=== PATIENT | female | born 1935 | race Caucasian/White ===

== ENCOUNTER 2018-12-14 13:50 | Outpatient (CLI) | payer MEDICARE | END 2018-12-14 23:59 | disposition home or self-care (01) | LOC: WOU 13:50 | PROVIDERS: ATTEND Podiatrist Foot & Ankle Surgery | DX: I87.2 Venous insufficiency (chronic) (peripheral) (principal); L97.812 Non-pressure chronic ulcer of other part of right lower leg with fat layer exposed; R60.0 Localized edema | CPT/HCPCS: G0463 ==

== ENCOUNTER 2018-12-20 10:50 | Outpatient (CLI) | payer MEDICARE | END 2018-12-20 23:59 | disposition home health service (06) | LOC: WOU 10:50 | PROVIDERS: ATTEND Podiatrist Foot & Ankle Surgery | DX: S80.821D Blister (nonthermal), right lower leg, subsequent encounter (principal); S80.822D Blister (nonthermal), left lower leg, subsequent encounter; L03.116 Cellulitis of left lower limb; L03.115 Cellulitis of right lower limb; X58.XXXD Exposure to other specified factors, subsequent encounter; I89.0 Lymphedema, not elsewhere classified; R60.1 Generalized edema | CPT/HCPCS: G0463 ==

== ENCOUNTER 2018-12-27 10:10 | Outpatient (CLI) | payer MEDICARE | END 2018-12-27 23:59 | disposition home health service (06) | LOC: WOU 10:10 | PROVIDERS: ATTEND Podiatrist Foot & Ankle Surgery | DX: I87.2 Venous insufficiency (chronic) (peripheral) (principal); I89.0 Lymphedema, not elsewhere classified; L85.3 Xerosis cutis | CPT/HCPCS: G0463 ==

== ENCOUNTER 2019-01-27 09:30 | Outpatient (CLI) | payer MEDICARE | END 2019-01-27 23:59 | disposition home or self-care (01) | LOC: WOU 09:30 | PROVIDERS: ATTEND Podiatrist Foot & Ankle Surgery | PROC: 0HBRXZZ Excision of Toe Nail, External Approach (ICD-10-PCS; principal; 2019-01-27) | DX: I89.0 Lymphedema, not elsewhere classified (principal); B35.1 Tinea unguium; M79.675 Pain in left toe(s); M79.674 Pain in right toe(s) | CPT/HCPCS: G0463 ==

== ENCOUNTER 2019-03-31 10:05 | Outpatient (CLI) | payer MEDICARE | END 2019-03-31 23:59 | disposition home health service (06) | LOC: WOU 10:05 | PROVIDERS: ATTEND Podiatrist Foot & Ankle Surgery | DX: I89.0 Lymphedema, not elsewhere classified (principal); I87.2 Venous insufficiency (chronic) (peripheral); B35.1 Tinea unguium | CPT/HCPCS: G0463 ==